=== PATIENT | female | born 1940 | race Asian ===

== ENCOUNTER 2019-04-30 16:33 | Inpatient (IN) | payer OTHER ==
[~2019-04-30] VITALS: Ht 154.9 cm; Wt 54.0 kg
[2019-04-30 16:33] VITALS: BP_SYST 142
--- NOTE | 2019-04-30 16:33 | NUR ---
BROUGHT IN BY [facility], PLACED IN BED #6, TRIAGED. REPORT GIVEN TO EDISON
--- NOTE | 2019-04-30 16:37 | NUR ---
Patient arrived in the ED c/o chest pain that radiates to the left scapula and headaches that started a couple of days ago. Patient denied any shortness of breath. Denied any fevers, chills, nausea, or vomiting. Patient is alert and oriented x4, respirations even and unlabored, speaking in full sentences, ambulating with a steady gait. VSS, pain level 2/10. Informed of approximate wait time. Instructed to notify ED staff for any changes in condition or worsening of symptoms. Patient verbalized understanding.
--- NOTE | 2019-04-30 16:55 | NUR ---
MARTA Steel at bedside examining patient.
--- NOTE | 2019-04-30 17:00 | NUR ---
X-ray tech at bedside as ordered by Dr. Steel. Patient tolerated the procedure well.
[2019-04-30] MEDS: MORPHINE 2 MG/ML INJ. SYRINGE IVP ONE ×2 (17:04→17:34)
--- NOTE | 2019-04-30 17:08 | NUR ---
Ambulated to the bathroom with a steady gait. Urine specimen collected and dropped off at the lab.
--- NOTE | 2019-04-30 17:17 | NUR ---
Refused Morphine Sulfate IVP, stated she's not in any pain at this time.
--- NOTE | 2019-04-30 17:50 | NUR ---
medical technician assistant at bedside as ordered by Dr. Steel collecting blood specimen. Patient tolerated the procedure well.
[2019-04-30 18:02] LABS: BILIRUBIN,URINE NEGATIVE (NEGATIVE); CLARITY/URINE CLEAR (CLEAR); COLOR,URINE YELLOW (YELLOW); GLUCOSE,URINE NEGATIVE (NEGATIVE); KETONES,URINE NEGATIVE (NEGATIVE); LEUKOCYTE ESTERASE ,URINE 2+ (NEGATIVE); NITRITE, URINE NEGATIVE (NEGATIVE); PH,URINE 7.5 (5.0-8.0); PROTEIN URINE NEGATIVE (NEGATIVE); UROBILINOGEN,URINE 0.2 (0.2-1.0)
[2019-04-30 18:18] LABS: ANION GAP 6 (5-15); CHLORIDE 104 mmol/L (98-107); CREATININE 0.79 mg/dL (0.55-1.30); GLUCOSE 122 mg/dL (70-99); SODIUM SERUM 140 mmol/L (136-145); UREA NITROGEN, BLOOD 16 mg/dL (8-21)
[2019-04-30 18:27] LABS: ALANINE AMINOTRANSFERASE 28 U/L (12-78); ALBUMIN 3.6 g/dL (3.4-4.8); ASPARTATE AMINOTRANSFERASE 14 U/L (10-37); TOTAL BILIRUBIN 0.3 mg/dL (0.0-1.0)
[2019-04-30 18:30] LABS: BLOOD, URINE TRACE (NEGATIVE)
[2019-04-30 18:33] LABS: RBC,URINE 0-3 /HPF (0-3)
[2019-04-30 18:34] LABS: BACTERIA,URINE FEW /HPF (None Seen); MUCUS,URINE None Seen /LPF (None Seen); WBC,URINE 20-50 /HPF (0-3)
[2019-04-30 18:38] LABS: BASOPHILS % (AUTO) 0.6 % (0.0-2.0); EOSINOPHILS # (AUTO) 0.1 K/uL (0.0-0.4); EOSINOPHILS % (AUTO) 0.8 % (0.0-4.0); HEMATOCRIT 42.5 % (36-48); HEMOGLOBIN 13.8 g/dL (12.0-16.0); LYMPHOCYTES # (AUTO) 2.1 K/uL (1.0-5.5); LYMPHOCYTES % (AUTO) 26.9 % (20.5-51.5); MEAN CORPUSCULAR HEMOGLOBIN 27 pg (27-31); MEAN CORPUSCULAR HGB CONC 33 % (32-36); MEAN CORPUSCULAR VOLUME 82 fL (79.0-98.0); MONOCYTES # (AUTO) 0.7 K/uL (0.0-1.0); MONOCYTES % (AUTO) 8.9 % (1.7-9.3); NEUTROPHILS # (AUTO) 4.9 K/uL (1.8-7.7); NEUTROPHILS % (AUTO) 62.8 % (40.0-70.0); PLATELET COUNT (AUTO) 252 K/uL (130-430); RED CELL DISTRIBUTION WIDTH 14.9 % (9.0-15.0); WHITE BLOOD COUNT (AUTO) 7.8 K/uL (4.8-10.8)
--- NOTE | 2019-04-30 19:05 | NUR ---
Patient is resting comfortably in bed, respirations even and unlabored. Denied any chest pain at this time. and daughter at bedside. VSS.
--- NOTE | 2019-04-30 19:16 | NUR ---
Report given and care transferred to YENNI Mckeon.
--- NOTE | 2019-04-30 19:44 | NUR ---
Laboratory at bedside.
--- NOTE | 2019-04-30 20:18 | NUR ---
Medication reconciliation completed with information provided by patient. Any prior medication reconciliation on file was reviewed and corrected.
--- NOTE | 2019-04-30 20:33 | NUR ---
Patient will be admitted to care of [facility]. Admitted to Telemetry unit. Will go to room 103B. Belongings list completed. Complete and up to date summary report printed. SBAR report to be given at bedside with opportunity for questions.
--- NOTE | 2019-04-30 20:47 | NUR ---
Transfer to Telemetry 103B via ACLS protocol. Licensed nurse present. IV present no signs or symptoms of infiltration.
--- NOTE | 2019-04-30 21:11 | NUR ---
CONSULTATION PAGED/CALLED Reason for Consultation: CP Person Who was Notified: GERSON Consulting Physician: DR. FLAHERTY Decorating Instructor Specialty: CARDIO Ordering Physician: DR. QUINONEZ
--- NOTE | 2019-04-30 21:13 | NUR ---
ADMIT NOTE Received pt from ER to the floor with a diagnosis of CHEST PAIN. Admission process initiated. patient oriented to pain management, safety and call light-teach back done.
[2019-04-30] MEDS ORDERED: DOCUSATE SODIUM 100 MG/10 ML UDC PO PRN (21:15)
[2019-04-30] MEDS ORDERED: MORPHINE 2 MG/ML INJ. SYRINGE IVP PRN (21:15)
[2019-04-30] MEDS ORDERED: ACETAMINOPHEN 500 MG TABLET PO PRN (21:15)
[2019-04-30] MEDS ORDERED: HYDROcodone/ACETAMIN 7.5-325 MG TAB PO PRN (21:15)
[2019-04-30] MEDS ORDERED: ONDANSETRON HCL 4 MG/2 ML VIAL IVP PRN (21:15)
[2019-04-30] MEDS ORDERED: NITROGLYCERIN 0.4 MG TAB.SUBL SL PRN (21:15)
[2019-04-30] MEDS ORDERED: POTASSIUM CHLORIDE 40 MEQ in NS 250 ML IV PRN (21:15)
[2019-04-30] MEDS ORDERED: ENALAPRIL MALEATE 5 MG TABLET (VASOTEC) PO ONE (21:30)
[2019-04-30] MEDS ORDERED: ENALAPRIL MALEATE 10 MG TABLET (VASOTEC) PO ONE (21:30)
[2019-04-30 21:34] VITALS: BP_SYST 177
[2019-04-30] MEDS: NACL 0.9% 1,000 ML IV SCH (21:36)
[2019-04-30] MEDS: ATORVASTATIN 10 MG TABLET PO SCH (21:38)
[2019-04-30] MEDS: PANTOPRAZOLE SODIUM 40 MG TAB PO SCH (21:39)
[2019-04-30] MEDS: METOPROLOL TARTRATE 25 MG TABLET PO SCH (21:43)
--- NOTE | 2019-04-30 22:00 | NUR ---
INITIAL NOTE AT INITIAL ASSESSMENT, PATIENT IS RESTING IN BED, STABLE, NO SIGNS OF RESPIRATORY DISTRESS. FAMILY IS AT BEDSIDE. PATIENT VERBALIZES NO PAIN. PLAN OF CARE FOR THE EVENING IS COMMUNICATED WITH THE PATIENT AND HER FAMILY. PATIENT DEMONSTRATES CORRECT USAGE OF CALL LIGHT USAGE AT THIS TIME. CLOSE MONITORING WILL BE COMPLETED THROUGHOUT THE SHIFT. BED IS LOCKED, ALARMED, AND THE LOWEST LEVEL. FALL, SAFETY, RESPIRATORY, AND ASPIRATION PRECAUTIONS WILL BE TAKEN THROUGHOUT THE SHIFT.
[2019-04-30 22:20] LABS: PROTHROMBIN TIME 9.6 SECS (9.5-12.5)
[2019-04-30 22:32] LABS: FREE T4 (FREE THYROXINE) 0.9 ng/dl (0.8-1.5); PHOSPHORUS 3.3 mg/dL (2.7-4.5); THYROID STIMULATING HORMONE 1.58 uIu/mL (0.36-3.74)
[2019-04-30] MEDS: cefTRIAXone 1 GM in D5W 50 ML IV SCH (23:27)
[2019-04-30] MEDS ORDERED: cefTRIAXone 1 GM IVPB PREMIX 50 ML IV ONE (23:30)
[2019-05-01] VITALS: BP_SYST 139
--- NOTE | 2019-05-01 | NUR ---
NOTE PATIENT IS RESTING IN BED, STABLE, NO SIGNS OF RESPIRATORY DISTRESS. CALL LIGHT IS WITHIN REACH. BED IS LOCKED, ALARMED AT AT THE LOWEST LEVEL.
--- NOTE | 2019-05-01 02:00 | NUR ---
NOTE PATIENT IS SLEEPING, STABLE, NO SIGNS OF RESPIRATORY DISTRESS. IS AT BEDSIDE. CALL LIGHT IS WITHIN REACH. BED IS LOCKED, ALARMED AT AT THE LOWEST LEVEL.
--- NOTE | 2019-05-01 06:00 | NUR ---
CLOSING NOTE PATIENT HAD NO COMPLAINTS OF CHEST DISCOMFORT OR ANY PAIN THROUGHOUT THE NIGHT, SHE SLEPT WELL. AT THIS TIME, PATIENT IS RESTING IN BED, STABLE, NO SIGNS OF RESPIRATORY DISTRESS. IS AT BEDSIDE. CALL LIGHT IS WITHIN REACH. BED IS LOCKED, ALARMED, AND AT THE LOWEST LEVEL. FALL, SAFETY, RESPIRATORY, AND ASPIRATION PRECAUTIONS HAVE BEEN IN PLACE THROUGHOUT THE NIGHT. WILL CONTINUE TO MONITOR UNTIL SHIFT REPORT IS GIVEN AT BEDSIDE TO AM NURSE.
[2019-05-01 07:06] LABS: BASOPHILS # (AUTO) 0.1 K/uL (0.0-0.2); EOSINOPHILS # (AUTO) 0.1 K/uL (0.0-0.4); EOSINOPHILS % (AUTO) 1.6 % (0.0-4.0); HEMATOCRIT 46.5 % (36-48); HEMOGLOBIN 15.3 g/dL (12.0-16.0); LYMPHOCYTES # (AUTO) 2.6 K/uL (1.0-5.5); LYMPHOCYTES % (AUTO) 32.8 % (20.5-51.5); MEAN CORPUSCULAR HEMOGLOBIN 27 pg (27-31); MEAN CORPUSCULAR HGB CONC 33 % (32-36); MEAN CORPUSCULAR VOLUME 82 fL (79.0-98.0); MONOCYTES # (AUTO) 0.7 K/uL (0.0-1.0); MONOCYTES % (AUTO) 9.1 % (1.7-9.3); NEUTROPHILS # (AUTO) 4.3 K/uL (1.8-7.7); NEUTROPHILS % (AUTO) 55.5 % (40.0-70.0); PLATELET COUNT (AUTO) 281 K/uL (130-430); RED BLOOD CELL COUNT(AUTO) 5.69 MIL/uL (4.2-6.2); RED CELL DISTRIBUTION WIDTH 14.9 % (9.0-15.0); WHITE BLOOD COUNT (AUTO) 7.8 K/uL (4.8-10.8)
--- NOTE | 2019-05-01 07:40 | NUR ---
Opening Note received bedside SBAR report from night warehouse selector RN, patient resting in bed, respirations even and unlabored on room air, no acute distress noted, patients family at bedside, educated patient on use of call light and asked to call for assistance, patient verbalized understanding, call light in reach, educated patient on use of bed alarm for patient safety, patient refusing bed alarm, bed in low and locked position.
[2019-05-01 08:00] VITALS: BP_SYST 142
[2019-05-01] MEDS: ASPIRIN 81 MG TAB.CHEW PO SCH (08:02)
[2019-05-01] MEDS: METOPROLOL TARTRATE 25 MG TABLET PO SCH ×2 (08:02→21:51)
[2019-05-01] MEDS: ATORVASTATIN 10 MG TABLET PO SCH (08:02)
[2019-05-01] MEDS: PANTOPRAZOLE SODIUM 40 MG TAB PO SCH (08:02)
[2019-05-01] MEDS: LISINOPRIL 5 MG TABLET PO SCH (08:03)
[2019-05-01 08:11] LABS: ANION GAP 7 (5-15); CALCIUM 9.1 mg/dL (8.4-11.0); CHLORIDE 103 mmol/L (98-107); GLUCOSE 93 mg/dL (70-99); POTASSIUM 3.5 mmol/L (3.5-5.1); SODIUM SERUM 141 mmol/L (136-145); UREA NITROGEN, BLOOD 11 mg/dL (8-21)
--- NOTE | 2019-05-01 09:20 | NUR ---
Physician Rounds Dr. Cooney at bedside examining patient and speaking with patient and patients family.
[2019-05-01 11:10] VITALS: BP_SYST 138
--- NOTE | 2019-05-01 11:47 | NUR ---
RN Rounds patient resting in bed, respirations even and unlabored on room air, patient denies any pain, patients family at bedside.
[2019-05-01] MEDS: AMOXICILLIN/CLAVULANATE POTASSIUM 500 MG TABLET PO SCH ×2 (13:03→21:52)
--- NOTE | 2019-05-01 14:09 | NUR ---
RN Rounds patient resting in bed, patient denies any pain, no acute distress noted, patients family at bedside.
[2019-05-01 15:03] VITALS: BP_SYST 104
--- NOTE | 2019-05-01 15:47 | NUR ---
RN Rounds patient resting in bed, patient denies any pain or chest pain, patient denies any shortness of breath, no acute distress noted, patients family at bedside.
--- NOTE | 2019-05-01 17:40 | NUR ---
RN Rounds patient sitting up in bed eating dinner, tolerating well, patients family at bedside.
--- NOTE | 2019-05-01 19:18 | NUR ---
Closing Note bedside SBAR report given to receiving RN, patient resting in bed, respirations even and unlabored on room air, patient denies any chest pain, educated patient on use of call light and asked to call for assistance, patient verbalized understanding, call light in reach, educated patient on use of bed alarm for patient safety, patient refusing bed alarm, bed in low and locked position, care endorsed to maintenance technician 3rd shift RN.
[2019-05-01 19:45] VITALS: BP_SYST 132
--- NOTE | 2019-05-01 19:45 | NUR ---
INITIAL NOTE AT INITIAL ASSESSMENT, PATIENT IS RESTING IN BED, STABLE, NO SIGNS OF RESPIRATORY DISTRESS. IS AT BEDSIDE. PATIENT VERBALIZES NO PAIN. PLAN OF CARE FOR THE EVENING IS COMMUNICATED WITH THE PATIENT AND HER FAMILY. PATIENT DEMONSTRATES CORRECT USAGE OF CALL LIGHT USAGE AT THIS TIME. CLOSE MONITORING WILL BE COMPLETED THROUGHOUT THE SHIFT. BED IS LOCKED, ALARMED, AND THE LOWEST LEVEL. FALL, SAFETY, RESPIRATORY, AND ASPIRATION PRECAUTIONS WILL BE TAKEN THROUGHOUT THE SHIFT.
--- NOTE | 2019-05-01 21:45 | NUR ---
NOTE SCHEDULED MEDICATIONS GIVEN. PATIENT IS RESTING IN BED, STABLE, NO SIGNS OF RESPIRATORY DISTRESS. CALL LIGHT IS WITHIN REACH. BED IS LOCKED, ALARMED AT AT THE LOWEST LEVEL.
[2019-05-01] MEDS: cefTRIAXone 1 GM in D5W 50 ML IV SCH (21:52)
[2019-05-01] MEDS: NACL 0.9% 1,000 ML IV SCH (21:58)
[2019-05-02] VITALS: BP_SYST 130
[2019-05-02] MEDS: AMOXICILLIN/CLAVULANATE POTASSIUM 500 MG TABLET PO SCH (05:33)
--- NOTE | 2019-05-02 06:00 | NUR ---
CLOSING NOTE NO CHANGES: PATIENT HAD NO COMPLAINTS OF CHEST DISCOMFORT OR ANY PAIN THROUGHOUT THE NIGHT, SHE SLEPT WELL. AT THIS TIME, PATIENT IS RESTING IN BED, STABLE, NO SIGNS OF RESPIRATORY DISTRESS. IS AT BEDSIDE. CALL LIGHT IS WITHIN REACH. BED IS LOCKED, ALARMED, AND AT THE LOWEST LEVEL. FALL, SAFETY, RESPIRATORY, AND ASPIRATION PRECAUTIONS HAVE BEEN IN PLACE THROUGHOUT THE NIGHT. WILL CONTINUE TO MONITOR UNTIL SHIFT REPORT IS GIVEN AT BEDSIDE TO AM NURSE.
--- NOTE | 2019-05-02 07:40 | NUR ---
AM rounds: Patient is oriented. Denies chest pain. Ambulates to the bathroom with steady gait. Wants to go home today. Call light within reach.
[2019-05-02] MEDS: PANTOPRAZOLE SODIUM 40 MG TAB PO SCH (08:26)
[2019-05-02] MEDS: ATORVASTATIN 10 MG TABLET PO SCH (08:26)
[2019-05-02] MEDS: ASPIRIN 81 MG TAB.CHEW PO SCH (08:26)
[2019-05-02 08:27] VITALS: BP_SYST 132
[2019-05-02] MEDS: LISINOPRIL 5 MG TABLET PO SCH (08:27)
[2019-05-02] MEDS: METOPROLOL TARTRATE 25 MG TABLET PO SCH (08:27)
[2019-05-02 09:29] LABS: BASOPHILS # (AUTO) 0.1 K/uL (0.0-0.2); BASOPHILS % (AUTO) 0.8 % (0.0-2.0); EOSINOPHILS # (AUTO) 0.2 K/uL (0.0-0.4); EOSINOPHILS % (AUTO) 2.7 % (0.0-4.0); HEMATOCRIT 44.6 % (36-48); HEMOGLOBIN 14.5 g/dL (12.0-16.0); LYMPHOCYTES # (AUTO) 1.6 K/uL (1.0-5.5); LYMPHOCYTES % (AUTO) 21.9 % (20.5-51.5); MEAN CORPUSCULAR HEMOGLOBIN 27 pg (27-31); MEAN CORPUSCULAR HGB CONC 33 % (32-36); MEAN CORPUSCULAR VOLUME 82 fL (79.0-98.0); MONOCYTES # (AUTO) 0.5 K/uL (0.0-1.0); MONOCYTES % (AUTO) 6.7 % (1.7-9.3); NEUTROPHILS % (AUTO) 67.9 % (40.0-70.0); PLATELET COUNT (AUTO) 250 K/uL (130-430); RED BLOOD CELL COUNT(AUTO) 5.44 MIL/uL (4.2-6.2); RED CELL DISTRIBUTION WIDTH 14.8 % (9.0-15.0); WHITE BLOOD COUNT (AUTO) 7.4 K/uL (4.8-10.8)
[2019-05-02 09:35] LABS: ANION GAP 8 (5-15); CALCIUM 8.8 mg/dL (8.4-11.0); CHLORIDE 102 mmol/L (98-107); CREATININE 0.87 mg/dL (0.55-1.30); GLUCOSE 137 mg/dL (70-99); POTASSIUM 3.6 mmol/L (3.5-5.1); SODIUM SERUM 134 mmol/L (136-145); UREA NITROGEN, BLOOD 17 mg/dL (8-21)
[2019-05-02 10:55] VITALS: BP_SYST 99
[2019-05-02 11:43] VITALS: BP_SYST 131
[2019-05-02] MEDS ORDERED: LISI10TA5 PO (12:56)
[2019-05-02] MEDS ORDERED: CEPH-568 PO (12:57)
--- NOTE | 2019-05-02 13:43 | NUR ---
D/C Patient Patient given medication reconciliation form and D/C instructions. Exit Care provided. Patient verbalized understanding. MD discussed with patient the results and treatment provided. Ambulatory with steady gait for discharge to home. Patient in stable condition, ID band removed. IV catheter removed, intact and dressing applied, no active bleeding. Rx of Lisinopril 10 mg and Keflex 500 mg given. Patient educated on follow up with PCP . All belongings sent with patient.
== END 2019-05-02 13:40 | disposition home or self-care (01) | DRG 690 ==
LOC: SED 16:33 → STU 20:09
PROVIDERS: ADMIT Family Medicine; ATTEND Family Medicine
DX: N39.0 Urinary tract infection, site not specified (principal); I20.9 Angina pectoris, unspecified; F03.90 Unspecified dementia, unspecified severity, without behavioral disturbance, psychotic disturbance, mood disturbance, and anxiety; E78.2 Mixed hyperlipidemia; E83.41 Hypermagnesemia; L73.8 Other specified follicular disorders; I10 Essential (primary) hypertension; L02.02 Furuncle of face; Z82.49 Family history of ischemic heart disease and other diseases of the circulatory system
CPT/HCPCS: 36415; 71045; 80048; 80053; 80061; 81000-TC; 82150-TC; 83036; 83690-TC; 83735-TC; 83880; 84100-TC; 84439; 84443-TC; 84484; 85025; 85379; 85610-TC; 85730-TC; 87086; 93005; 93306; 99285; G0378; J0696; J2270; J3480; J7030; J7050; J7060

== ENCOUNTER 2019-05-04 16:43 | Inpatient (IN) | payer OTHER ==
[~2019-05-04] VITALS: Ht 154.9 cm; Wt 54.0 kg
[~2019-05-04 16:43] MED LIST: CEPH-568 PO; LISI10TA5 PO
--- NOTE | 2019-05-04 16:45 | NUR ---
ECG done at bedside as ordered by Dr. Pablo. Patient tolerated the procedure well. Report given to MD for review.
--- NOTE | 2019-05-04 16:45 | NUR ---
Patient to ER bed 06 to gown for evaluation. Side rails up.
--- NOTE | 2019-05-04 16:46 | NUR ---
Patient arrived in the ED c/o left-sided chest pain that started at 10:00 this morning. Denied any recent trauma or falls. Denied any shortness of breath. Patient is alert and oriented x4, respirations even and unlabored, speaking in full sentences and ambulating with a steady gait. VSS, pain level 8/10. Informed of the approximate wait time. Instructed to notify ED staff for any changes in condition or worsening of symptoms. Patient verbalized understanding.
--- NOTE | 2019-05-04 16:47 | NUR ---
ER Dr. Pablo at bedside examining patient.
[2019-05-04] MEDS ORDERED: ASPIRIN 81 MG TAB.CHEW PO ONE (17:00)
--- NOTE | 2019-05-04 17:11 | NUR ---
Administered ASA 162mg PO as ordered by Dr. Pablo. Patient tolerated the medications well. See eMAR for details.
--- NOTE | 2019-05-04 17:17 | NUR ---
# 22 gauge angiocath placed to right wrist. Use of asceptic technique. Opsite placed over site. Blood return noted. Blood for lab drawn from site. Flushed with 10 cc of normal saline. No evidence of infiltration noted. Patient tolerated well.
--- NOTE | 2019-05-04 17:19 | NUR ---
technical services specialist at bedside as ordered by Dr. Palbo. Patient tolerated the procedure well.
[2019-05-04 17:33] LABS: BASOPHILS # (AUTO) 0.1 K/uL (0.0-0.2); BASOPHILS % (AUTO) 0.8 % (0.0-2.0); EOSINOPHILS # (AUTO) 0.1 K/uL (0.0-0.4); EOSINOPHILS % (AUTO) 0.8 % (0.0-4.0); HEMOGLOBIN 14.7 g/dL (12.0-16.0); LYMPHOCYTES # (AUTO) 2.9 K/uL (1.0-5.5); LYMPHOCYTES % (AUTO) 30.8 % (20.5-51.5); MEAN CORPUSCULAR HEMOGLOBIN 27 pg (27-31); MEAN CORPUSCULAR HGB CONC 33 % (32-36); MEAN CORPUSCULAR VOLUME 81 fL (79.0-98.0); MONOCYTES # (AUTO) 0.7 K/uL (0.0-1.0); MONOCYTES % (AUTO) 7.5 % (1.7-9.3); NEUTROPHILS # (AUTO) 5.7 K/uL (1.8-7.7); NEUTROPHILS % (AUTO) 60.1 % (40.0-70.0); PLATELET COUNT (AUTO) 276 K/uL (130-430); RED BLOOD CELL COUNT(AUTO) 5.53 MIL/uL (4.2-6.2); WHITE BLOOD COUNT (AUTO) 9.5 K/uL (4.8-10.8)
[2019-05-04 17:45] LABS: ANION GAP 6 (5-15); CALCIUM 8.8 mg/dL (8.4-11.0); CHLORIDE 102 mmol/L (98-107); CREATININE 0.81 mg/dL (0.55-1.30); GLUCOSE 110 mg/dL (70-99); POTASSIUM 3.5 mmol/L (3.5-5.1); SODIUM SERUM 139 mmol/L (136-145); UREA NITROGEN, BLOOD 20 mg/dL (8-21)
[2019-05-04 17:47] LABS: PROTHROMBIN TIME 9.6 SECS (9.5-12.5)
[2019-05-04 17:51] LABS: ALANINE AMINOTRANSFERASE 28 U/L (12-78); ALBUMIN 3.8 g/dL (3.4-4.8); ASPARTATE AMINOTRANSFERASE 21 U/L (10-37); TOTAL BILIRUBIN 0.4 mg/dL (0.0-1.0)
--- NOTE | 2019-05-04 17:57 | NUR ---
and daughter at bedside.
--- NOTE | 2019-05-04 18:23 | NUR ---
Patient is having a 6-7/10 chest pain that radiates to her back now. Denied any shortness of breath.
--- NOTE | 2019-05-04 18:25 | NUR ---
ER Dr. Pablo at bedside re-examining patient.
[2019-05-04] MEDS ORDERED: NITROGLYCERIN 0.4 MG TAB.SUBL SL ONE (18:30)
[2019-05-04] MEDS ORDERED: ENOXAPARIN SODIUM 40 MG/0.4 ML SYRINGE SUBCUT ONE (18:45)
--- NOTE | 2019-05-04 19:05 | NUR ---
The daughter told me that the patient refused to stay tonight. aware.
--- NOTE | 2019-05-04 19:14 | NUR ---
Report given and care transferred to YENNI Rodriguez.
--- NOTE | 2019-05-04 19:26 | NUR ---
Report recieved from RN at bedside via SBAR approach.
--- NOTE | 2019-05-04 19:48 | NUR ---
Patient will be admitted to care of Dr. Lauren. Admitted to Telemetry unit. Awaiting Room Assignment. Belongings list completed. Complete and up to date summary report printed. SBAR report to be given at bedside with opportunity for questions.
--- NOTE | 2019-05-04 21:47 | NUR ---
Room received, Pt will be going to Room 105A. Report to be given at bedside. Transferring Pt now.
[2019-05-04] MEDS ORDERED: ONDANSETRON HCL 4 MG/2 ML VIAL IVP ONE (22:00)
[2019-05-04] MEDS ORDERED: ONDANSETRON HCL 4 MG/2 ML VIAL ONE (22:05)
--- NOTE | 2019-05-04 22:09 | NUR ---
ADMISSION NOTE Received patient from ER via [facility]ier[facility], received report from PERSONAL ASSISTANT. Patient admitted with diagnosis of CHEST PAIN. Patient oriented to hospital routine, call light, toileting and safety-patient verbalized understanding.
[2019-05-04 22:10] VITALS: BP_SYST 119
--- NOTE | 2019-05-04 22:42 | NUR ---
Dr Tyler Lauren Patient requesting for home medication Cephalexin and sleeping pill. Leonidas Ricketts ordered Cephalexin 500mg PO BID for UTI, and Trazadone 50mg PO QHS for insomnia. Addendum: 05/05/19 at 0143 by Evon Nichole RN Continuation of Notes Per the daughter Deidra, patient should be taking 4 more days worth of antibiotics, and her last dose will be on 05/08/[address] Lauren, A made aware and scheduled stop date for 05/08/2019 after the last dose in the evening.
[2019-05-04] MEDS ORDERED: traZODone HCL 50 MG TABLET (DESYREL) PO PRN (23:00)
[2019-05-04] MEDS ORDERED: CEPHALEXIN 250 MG CAPSULE PO SCH (23:00)
[2019-05-04] MEDS ORDERED: CEPHALEXIN 500 MG CAPSULE PO SCH ×2 (23:06→23:15)
[2019-05-05] MEDS ORDERED: ACETAMINOPHEN 325 MG TABLET PO PRN
[2019-05-05] MEDS ORDERED: ONDANSETRON HCL 4 MG/2 ML VIAL IVP PRN
[2019-05-05] MEDS ORDERED: HYDROcodone/ACETAMIN 5-325 MG TAB (NORCO/ VICODIN) PO PRN
[2019-05-05] MEDS ORDERED: LORazepam 2 MG/ML VIAL IVP PRN
[2019-05-05] MEDS: HYDROcodone/ACETAMIN 10-325 MG TAB PO PRN ×3 (01:50→12:40)
--- NOTE | 2019-05-05 01:57 | NUR ---
Patient complaining of left arm pain. Provided [place] PRN per MD order, see eMAR for details.
[2019-05-05 01:59] LABS: ANION GAP 9 (5-15); CALCIUM 8.7 mg/dL (8.4-11.0); CHLORIDE 103 mmol/L (98-107); CREATININE 0.87 mg/dL (0.55-1.30); GLUCOSE 130 mg/dL (70-99); PHOSPHORUS 3.5 mg/dL (2.7-4.5); POTASSIUM 3.9 mmol/L (3.5-5.1); SODIUM SERUM 138 mmol/L (136-145); UREA NITROGEN, BLOOD 22 mg/dL (8-21)
--- NOTE | 2019-05-05 02:04 | NUR ---
Critical Troponin 0.791 , Paging Dr Lauren, A Spoke with Kaelyn. Awaiting for call back.
--- NOTE | 2019-05-05 02:35 | NUR ---
2nd page for Barrington Castillo. Barrington Agudelo answered. Informed Barrington Agudelo that the patient's Troponin is 0.791. Stated to call Dr Ej Lauren, even though Dr Ej Lauren has not yet seen the patient.
--- NOTE | 2019-05-05 02:38 | NUR ---
Paging Ej Agudelo. Spoke with Kaelyn, who transferred me directly to the MD. Made Ej Agudelo aware of Troponin 0.791. Previously the patient's Troponin was 0.374. Ej Agudelo state no orders at this time, and to draw Troponin 8 hours later.
--- NOTE | 2019-05-05 03:17 | NUR ---
Patient resting comfortably in bed, eyes closed. Breathing even and unlabored, with visible chest rise and fall noted. No SOB, no acute distress, no signs of pain or facial grimacing noted. Bed is locked, lowest position, 2x side rails up, bed alarm is on. Call light is within reach.
--- NOTE | 2019-05-05 03:32 | NUR ---
Consultation Paged Reason for Consultation: Chest Pain Was consult called: Y Person who was notified: Kilo Consulting Physician: Ej Castillo Prosthetic Aides Teacher Ordering Physician: Tyler Castillo
[2019-05-05] MEDS: NORMAL SALINE 5 ML DISP.SYRIN IVF SCH ×6 (06:00→20:26)
--- NOTE | 2019-05-05 06:23 | NUR ---
Closing Notes Patient resting comfortably in bed, eyes closed. Breathing even and unlabored with visible chest rise and fall noted. NO SOB, no acute distress, no signs of pain or facial grimacing noted. Bed is locked, lowest position, 2x side rails up, bed alarm is on. Call light is within reach. Fall and safety precautions maintained. All needs have been met during this shift. Will endorse care to oncoming dayshift nurse.
[2019-05-05 06:40] VITALS: BP_SYST 138
--- NOTE | 2019-05-05 07:15 | NUR ---
OPENING NOTES PT AWAKE, ALERT, AND ORIENTED. AT BEDSIDE. NO ACUTE DISTRESS NOTED. IV LINE INTACT AND PATENT, NO SIGNS OF INFILTRATION. PT DENIES PAIN AT THIS TIME. BED IN LOCKED AND LOWEST POSITION. ALL NEEDS MET. CALL LIGHT IN REACH. FALL AND ASPIRATION PRECAUTIONS IN PLACE. CONTINUE TO MONITOR.
[2019-05-05 07:39] LABS: BASOPHILS % (AUTO) 0.4 % (0.0-2.0); EOSINOPHILS % (AUTO) 0.2 % (0.0-4.0); HEMATOCRIT 42.3 % (36-48); HEMOGLOBIN 13.8 g/dL (12.0-16.0); LYMPHOCYTES # (AUTO) 2.6 K/uL (1.0-5.5); LYMPHOCYTES % (AUTO) 33.6 % (20.5-51.5); MEAN CORPUSCULAR HEMOGLOBIN 27 pg (27-31); MEAN CORPUSCULAR HGB CONC 33 % (32-36); MEAN CORPUSCULAR VOLUME 82 fL (79.0-98.0); MONOCYTES # (AUTO) 0.5 K/uL (0.0-1.0); MONOCYTES % (AUTO) 6.7 % (1.7-9.3); NEUTROPHILS # (AUTO) 4.6 K/uL (1.8-7.7); NEUTROPHILS % (AUTO) 59.1 % (40.0-70.0); PLATELET COUNT (AUTO) 259 K/uL (130-430); RED BLOOD CELL COUNT(AUTO) 5.13 MIL/uL (4.2-6.2); RED CELL DISTRIBUTION WIDTH 14.8 % (9.0-15.0); WHITE BLOOD COUNT (AUTO) 7.7 K/uL (4.8-10.8)
[2019-05-05 08:00] VITALS: BP_SYST 110
[2019-05-05] MEDS: CEPHALEXIN 500 MG CAPSULE PO SCH ×2 (08:22→20:24)
--- NOTE | 2019-05-05 08:22 | NUR ---
ROUTINE AND PRN MEDS ROUTINE AND PRN MEDS ADMINISTERED ORDERED PER MD, EDUCATION GIVEN, TOLERATED WELL. CALL LIGHT IN REACH. ALL NEEDS MET. CONTINUE TO MONITOR.
[2019-05-05] MEDS ORDERED: LISINOPRIL 10 MG TABLET (PRINIVIL) PO SCH (09:00)
[2019-05-05] MEDS ORDERED: CEPHALEXIN 500 MG CAPSULE PO SCH (09:00)
--- NOTE | 2019-05-05 09:37 | NUR ---
CRITICAL LAB RECEIVED CRITICAL LAB VALUE FROM [facility]. TROPONIN LEVEL 1.423. PAGED DR. DYLLAN STAPLES.
--- NOTE | 2019-05-05 09:40 | NUR ---
SPOKE TO DR. DYLLAN STAPLES INFORMED DR. STAPLES ABOUT THE TROPONIN. RECEIVED ORDERS FOR EKG, VERIFIED AND CLARIFIED, CARRIED OUT. STATED HE WILL COME AND SEE PT.
--- NOTE | 2019-05-05 12:00 | NUR ---
NOTE ASSISTED PATIENT TO BATHROOM. PATIENT WITH SLOW STEADY GAIT. CONT TO MONITOR. AND DAUGHTER AT BEDSIDE
--- NOTE | 2019-05-05 12:15 | NUR ---
PAIN PT COMPLAINS OF CHEST PAIN. BP IS 164/88. HEART RATE 85. O2 95% ON RA. PAGED DR. DYLLAN STAPLES. AWAITING FOR CALL BACK. Addendum: 05/05/19 at 1551 by Aury Vanessa RN WRONG TIME 1230
[2019-05-05 12:30] VITALS: BP_SYST 164
--- NOTE | 2019-05-05 13:06 | NUR ---
SPOKE TO DR. STAPLES RECEIVED ORDERS FOR METOPROLOL 25MG PO X1 NOW AND BID. ORDERS VERIFIED, CLARIFIED, AND CARRIED OUT.
[2019-05-05] MEDS ORDERED: METOPROLOL SUCCINATE 25 MG TAB.SR.24H (TOPROL XL) PO ONE (13:30)
--- NOTE | 2019-05-05 15:00 | NUR ---
ASSISTED PT TO BATHROOM TOLERATED WELL. FAMILY AT BEDSIDE. NO ACUTE DISTRESS NOTED. ALL NEEDS MET. CALL LIGHT IN REACH. CONTINUE TO MONITOR.
[2019-05-05 16:00] VITALS: BP_SYST 115
--- NOTE | 2019-05-05 17:00 | NUR ---
SEEN BY DR. DYLLAN STAPLES AT BEDSIDE. FAMILY AT BEDSIDE.
--- NOTE | 2019-05-05 17:19 | NUR ---
SEEN AND EXAMINED BY DR.Y STAPLES AT BEDSIDE. ORDERED HEPARIN DRIP WITH PHARMACY TO DOSE, TROPONIN NOW AND TROPONIN LVL TOMORROW MORNING. ORDER VERIFIED AND CARRIED OUT. CONT TO MONITOR Addendum: 05/05/19 at 1747 by Vianey Aguilar RN PER DR.Y STAPLES CALL HIM WITH RESULTS [phone]
[2019-05-05] MEDS ORDERED: HEPARIN SODIUM,PORCINE 5000 UNITS/ML VIAL IVP ONE (17:30)
[2019-05-05] MEDS ORDERED: HEPARIN SODIUM,PORCINE 3000 UNITS/0.6 ML BOLUS IVP PRN (17:30)
[2019-05-05] MEDS ORDERED: HEPARIN SODIUM,PORCINE 2000 UNITS/0.4 ML BOLUS IVP PRN (17:30)
--- NOTE | 2019-05-05 17:59 | NUR ---
CRITICAL LAB RECEIVED CRITICAL LAB TROPONIN 1.504. SPOKE TO DR. DYLLAN STAPLES. RECEIVED ORDERS. CLARIFIED, VERIFIED, AND CARRIED OUT.
[2019-05-05] MEDS: HEPARIN 25,000 UNITS/D5W 250ML 250 ML IV PRN (18:41)
--- NOTE | 2019-05-05 18:45 | NUR ---
HEPARIN DRIP HEPARIN DRIP INITIATED, RUNNING AT 700 UNITS/HR, PATIENT STABLE, TOLERATING WELL, EDUCATION GIVEN. PTT ORDERED AT 0030. NO ACUTE DISTRESS NOTED. FAMILY AT BEDSIDE. ALL NEEDS MET. CALL LIGHT IN REACH. CONTINUE TO MONITOR.
--- NOTE | 2019-05-05 18:59 | NUR ---
CLOSING NOTE PT RESTING IN BED. CHEST RISE AND FALL NOTED. NONLABORED BREATHING NOTED. IV INTACT AND PATENT, NO SIGNS OF INFILTRATION. HEPARIN DRIP RUNNING AT 700 UNITS/HR, TOLERATING WELL. FAMILY AT BEDSIDE. BED IN LOWEST AND LOCKED POSITION. ALL NEEDS MET. CALL LIGHT IN REACH. FALL AND ASPIRATION PRECAUTIONS IN PLACE. WILL ENDORSE TO NOC NURSE.
--- NOTE | 2019-05-05 19:30 | NUR ---
Initial Notes Received handoff report from offgoing nurse at the bedside. Patient is AAOx4, resting comfortably in bed. No SOB, no acute distress, no signs of pain or facial grimacing noted. IV site currently running heparin drip per MD order, see EMAR. Bed is locked, lowest position, 2x side rails up, bed alarm is on. Call light is within reach. Encouraged patient to call for assistance. Will continue with plan of care.
[2019-05-05 20:00] VITALS: BP_SYST 109
[2019-05-05] MEDS ORDERED: METOPROLOL SUCCINATE 25 MG TAB.SR.24H (TOPROL XL) PO SCH (21:00)
--- NOTE | 2019-05-05 21:00 | NUR ---
Patient complaining of the neighboring bed being too noisy, and unable to rest comfortably. Charge nurse made aware, and stated that she will make arrangements to change the patient's room.
--- NOTE | 2019-05-05 22:15 | NUR ---
Provided patient with bed bath. Patient is now clean and dry, resting comfortably in bed. Daughters are at the bedside. No SOB, no acute distress, no complaints of pain or discomfort at this time.
--- NOTE | 2019-05-05 23:21 | NUR ---
Patient moved to room 106B to promote rest. stated he will stay the night to accompany the patient.
[2019-05-05 23:41] VITALS: BP_SYST 114
--- NOTE | 2019-05-06 01:15 | NUR ---
PTT results 90.6. Stopped heparin infusion and will hold for 1 hour per protocol. Will initiate heparin drip in an hour. Addendum: 05/06/19 at 0224 by Evon Nichole RN Correction* PTT results 90.5. Stopped heparin infusion and will hold for 1 hour per protocol. Will initiate heparin drip in an hour.
--- NOTE | 2019-05-06 02:15 | NUR ---
Patient resting comfortably in bed, eyes are closed. Breathing even and unlabored with visible chest rise and fall noted. No SOB, no acute distress, no signs of pain or facial grimacing noted. Bed is locked, lowest position, 2x side rails up, bed alarm is on. Call light is within reach. at the bedside sleeping. Started heparin drip at 500 units (5ml) per hour according to the protocol. Will continue with plan of care.
[2019-05-06] MEDS: HEPARIN 25,000 UNITS/D5W 250ML 250 ML IV PRN (02:18)
--- NOTE | 2019-05-06 04:18 | NUR ---
paged paged doctor mariah weaver for results on critical trop.
--- NOTE | 2019-05-06 04:21 | NUR ---
Ej Agudelo Reported to MD regarding Troponin 2.215. Ej Agudelo stated no new orders at this time, and to continue Heparin drip. Will continue with plan of care.
--- NOTE | 2019-05-06 05:22 | NUR ---
Dr Leonidas Pagan called the nurses station Stated to make the patient NPO, and that he will find bed availability to send the patient to higher level of care for a labor law professor. Dr Lauren stated that he will call back when he finds a facility.
[2019-05-06] MEDS: NORMAL SALINE 5 ML DISP.SYRIN IVF SCH ×2 (05:24)
--- NOTE | 2019-05-06 05:31 | NUR ---
Ej Agudelo Ordered stat EKG, transfer to [facility] via [facility], D/C heparin drip prior to transfer.
--- NOTE | 2019-05-06 05:36 | NUR ---
[facility] number to call for report to the laborer mine is [phone]. Unable to call for report at this time.
--- NOTE | 2019-05-06 05:37 | NUR ---
transport [facility] for bulk picker at 0815 going to [facility]. needs to be there no later than 0900 cath apt is schedule for 1000. spoke with catrachito at [facility]. ph num. [phone] spoke with natan at [facility]. and she said pt is going to straight to [facility]. [facility] number is [phone] Addendum: 05/06/19 at 0542 by Rosio Kilpatrick CNA this is a ALS bulk picker
[2019-05-06 05:46] VITALS: BP_SYST 115
--- NOTE | 2019-05-06 05:47 | NUR ---
[facility] called back and said they will not be able to take pt till after 1100 . will call around for other transport
--- NOTE | 2019-05-06 06:00 | NUR ---
called [facility] no als avail. called [facility] . no als avail [facility] no [facility] no als
--- NOTE | 2019-05-06 06:01 | NUR ---
nikolas hernandez called and spoke with [facility] and they said they would only be able to come around 0730.
--- NOTE | 2019-05-06 06:36 | NUR ---
CALLED [facility] TO GIVE REPORT. SPOKE WITH DOWEL PIN MAN, WHO STATED I AM UNABLE TO GIVE REPORT RIGHT NOW BECAUSE THERE IS NO ONE AT THE [facility].
--- NOTE | 2019-05-06 06:48 | NUR ---
CLOSING NOTES PATIENT RESTING COMFORTABLY IN BED, AAOX4. NO SOB, NO ACUTE DISTRESS, NO SIGNS OF PAIN OR FACIAL GRIMACING NOTED. BED IS LOCKED, LOWEST POSITION, 2X SIDE RAILS UP, BED ALARM IS ON. FALL AND SAFETY PRECAUTIONS MAINTAINED. ALL NEEDS HAVE BEEN MET DURING THIS SHIFT. WILL ENDORSE CARE TO ONCOMING DAYSHIFT NURSE.
[2019-05-06 07:15] VITALS: BP_SYST 123
--- NOTE | 2019-05-06 07:15 | NUR ---
OPENING NOTES PT AWAKE, ALERT, AND ORIENTED. FAMILY AT BEDSIDE. NO ACUTE DISTRESS NOTED. IV LINE INTACT AND PATENT, NO SIGNS OF INFILTRATION. NONLABORED BREATHING NOTED. ALL NEEDS MET. CALL LIGHT IN REACH. FALL AND ASPIRATION PRECAUTIONS IN PLACE. CONTINUE TO MONITOR.
--- NOTE | 2019-05-06 07:27 | NUR ---
[facility] CLEARANCE CENTER MANAGER REPORT CALLED [facility] [phone]. SPOKE TO DONTE HYMAN AT CLEARANCE CENTER MANAGER WITH REPORT GIVEN AND GREETING CARD WRITER TIME AT 0730.
--- NOTE | 2019-05-06 07:30 | NUR ---
NOTE PATIENT IS AWAKE IN BED WITH AND DAUGHTER AT BEDSIDE. ALERT AND ORIENTED. DENIES PAIN AT THIS TIME. ROOM AIR. NO ACUTE DISTRESS. NO SOB. RESPIRATION EVEN AND UNLABORED. SKIN WARM AND DRY TO TOUCH. IV INTACT AND PATENT TO LEFT FA WITH HEPARIN DRIP ORDERED AND PATIENT TOLERATING WELL. WILL D/C HEPARIN BEFORE TRANSFER ORDERED. NO ABNORMAL BLEEDING NOTED. PATIENT IS AMBULATORY WITH ASSISTED. ALL NEEDS MET. CALL LIGHT IN REACH. PATIENT AWARE OF PLAN OF CARE AND IS WAITING FOR AMBULANCE SPUN PASTE MACHINE OPERATOR FOR TRANSFER TO [facility] VICE PRESIDENT CORPORATE COMMUNICATIONS. BED IN LOW AND LOCKED POSITION. SIDERAIL UPX2. BED ALARM ON. Addendum: 05/06/19 at 1053 by Vianey Aguilar RN HEPARIN DRIP RUNNING AT 500 UNITS/HR.
[2019-05-06 07:51] LABS: BASOPHILS # (AUTO) 0.1 K/uL (0.0-0.2); BASOPHILS % (AUTO) 0.9 % (0.0-2.0); EOSINOPHILS # (AUTO) 0.1 K/uL (0.0-0.4); EOSINOPHILS % (AUTO) 1.3 % (0.0-4.0); HEMATOCRIT 42.9 % (36-48); HEMOGLOBIN 13.9 g/dL (12.0-16.0); LYMPHOCYTES # (AUTO) 2.2 K/uL (1.0-5.5); LYMPHOCYTES % (AUTO) 25.9 % (20.5-51.5); MEAN CORPUSCULAR HEMOGLOBIN 27 pg (27-31); MEAN CORPUSCULAR HGB CONC 32 % (32-36); MEAN CORPUSCULAR VOLUME 82 fL (79.0-98.0); MONOCYTES # (AUTO) 0.8 K/uL (0.0-1.0); MONOCYTES % (AUTO) 9.2 % (1.7-9.3); NEUTROPHILS # (AUTO) 5.3 K/uL (1.8-7.7); NEUTROPHILS % (AUTO) 62.7 % (40.0-70.0); PLATELET COUNT (AUTO) 259 K/uL (130-430); RED BLOOD CELL COUNT(AUTO) 5.23 MIL/uL (4.2-6.2); RED CELL DISTRIBUTION WIDTH 14.8 % (9.0-15.0); WHITE BLOOD COUNT (AUTO) 8.5 K/uL (4.8-10.8)
--- NOTE | 2019-05-06 08:00 | NUR ---
PT TRANSFERRED Report given to Grazyna HYMAN at [facility] Airplane Charter Clerk. Transfer packet with Transfer Orders and Medication Reconciliation form given to EMT with report. Exitcare provided. [facility] ID band removed, replaced with ID band with pt's name and . IV catheter intact and patent and flushes freely. All belongings sent with patient. Patient left floor via gurney escorted by EMT in no distress. Daughter and at side to follow amubulance.
[2019-05-06 08:51] LABS: ANION GAP 8 (5-15); CALCIUM 8.9 mg/dL (8.4-11.0); CHLORIDE 99 mmol/L (98-107); GLUCOSE 104 mg/dL (70-99); POTASSIUM 3.6 mmol/L (3.5-5.1); SODIUM SERUM 131 mmol/L (136-145)
[2019-05-06 08:52] LABS: CREATININE 0.85 mg/dL (0.55-1.30); UREA NITROGEN, BLOOD 19 mg/dL (8-21)
== END 2019-05-06 08:00 | disposition short-term general hospital (02) | DRG 392 ==
LOC: SED 16:43 → STU 19:38
PROVIDERS: ADMIT Preventive Medicine Preventive Medicine/Occupational Environmental Medicine; ATTEND Preventive Medicine Preventive Medicine/Occupational Environmental Medicine
DX: K21.9 Gastro-esophageal reflux disease without esophagitis (principal); I24.9 Acute ischemic heart disease, unspecified; I10 Essential (primary) hypertension; R73.9 Hyperglycemia, unspecified; Z79.899 Other long term (current) drug therapy
CPT/HCPCS: 36415; 71045; 80048; 80053; 83735-TC; 83880; 84100-TC; 84484; 85025; 85610-TC; 85730-TC; 87081; 93005; 96372; 96374; 99285; G0378; J1644; J1650; J2060; J2405